=== PATIENT | male | born 1935 | race Caucasian/White ===

== ENCOUNTER 2019-09-08 16:54 | Inpatient (IN) | payer MEDICARE, OTHER ==
[~2019-09-08] VITALS: Ht 175.3 cm; Wt 71.6 kg
[~2019-09-08 16:54] MED LIST: ACET-1770 PO; ASCO-254 PO; ASPI-496 PO; BACI28.42 EXT; CHLO15MO PO; CITA20TA6 PO; CO Q10 PO; CYCL5TAB PO; DOCU50CA3 PO; HYDR-3237 PO; LACT1CAP37 PO; LUTEIN PO; MULT-6 PO; OMEP-110 PO; OXYC-302 PO; TAMS-11 PO; TIZA4CAP PO; TRAZ50TA66 PO; UBID200C7 PO; VITAMIN B12 PO; Will bring list DOS
--- NOTE | 2019-09-08 16:54 | NUR ---
BIBS TRANSFER FROM [facility], [place] C/O DRY COUGH/SOB X2WKS, IMPROVEMENT AFTER DOXYCYLINE USE, SYMPTOMS RETURNED WITH NV X1 THIS AM, +BILAT PNA, COVID PENDING; PT ASSISTED WITH TRANSFER [facility] TO [facility] [place], RESPONDS APPROP TO STAFF WITH NO RESP DISTRESS ON ARRIVAL; COMFORT MEASURES PROVIDED, CALL LIGHT WITHIN REACH.
[2019-09-08] MEDS ORDERED: CITA10TA8 PO (17:12)
[2019-09-08] MEDS ORDERED: FINA5TAB4 PO (17:12)
[2019-09-08] MEDS ORDERED: ASPI-496 PO (17:12)
--- NOTE | 2019-09-08 17:36 | NUR ---
REPORT GIVEN TO YUE. Addendum: 09/08/19 at 1747 by [place] REPORT GIVEN TO
--- NOTE | 2019-09-08 17:40 | NUR ---
PT FAILED ROOM ARE TEST. PT DROPPED TO 88% ON ROOM AIR. PT PLACED BACK ON 2 LITERS VIA NC. PT SAT AT 95%
[2019-09-08 18:15] LABS: BASOPHILS # (AUTO) 0.05 x10^3/uL (0-0.1); BASOPHILS % (AUTO) 0 % (0-1); EOSINOPHILS # (AUTO) 0.09 x10^3/uL (0-0.4); EOSINOPHILS % (AUTO) 1 % (1-7); LYMPHOCYTES # (AUTO) 1.39 x10^3/uL (1-3.4); LYMPHOCYTES % (AUTO) 13 % (22-44); MD NO; MEAN CORPUSCULAR HEMOGLOBIN 31.4 pg (27.5-34.5); MEAN CORPUSCULAR HGB CONC 32.7 g/dL (33.2-36.2); MEAN PLATELET VOLUME 9.3 fL (7.4-10.4); MONOCYTES % (AUTO) 8 % (2-9); NEUTROPHILS # (AUTO) 8.45 x10^3/uL (1.8-6.8); NEUTROPHILS % (AUTO) 78 % (42-75); PLATELET COUNT 151 x10^3/uL (130-400); RED BLOOD COUNT 5.08 x10^6/uL (4.38-5.82)
[2019-09-08 18:24] LABS: ANION GAP 5 mmol/L (5-15); CALCIUM 8.6 mg/dL (8.5-10.1); CHLORIDE 111 mmol/L (98-107); CREATININE 1.27 mg/dL (0.7-1.3)
[2019-09-08] MEDS: SODIUM CHLORIDE 0.9% 1,000 ML IV SCH (18:31)
[2019-09-08] MEDS ORDERED: HEPARIN 25,000 UNITS/250ML PMX 250 ML ONE (18:38)
[2019-09-08] MEDS ORDERED: HEPARIN 5,000 UNITS/ML, 1ML ONE (18:38)
[2019-09-08] MEDS: HEPARIN 25,000 UNITS/250ML PMX 250 ML IV PRN (18:55)
--- NOTE | 2019-09-08 18:58 | NUR ---
HEPARIN INFUSING. ADMITTING MD IS BEDSIDE. PT TO BE ADMITTED. PT EDUCATED ON PLAN OF CARE
[2019-09-08] MEDS ORDERED: ACETAMINOPHEN 325 MG TABLET PO PRN (19:00)
[2019-09-08] MEDS ORDERED: hydrALAzine 20 MG/ML, 1ML IVPush PRN (19:00)
[2019-09-08] MEDS ORDERED: VANCOMYCIN PER PHARMACY MC PRN (19:00)
[2019-09-08] MEDS ORDERED: SODIUM CHLORIDE 0.9%, 500ML IVBOLUS ONE (19:00)
[2019-09-08] MEDS ORDERED: HEPARIN 5,000 UNITS/ML, 1ML IV ONE (19:00)
[2019-09-08] MEDS ORDERED: HEPARIN 5,000 UNITS/ML, 1ML IV PRN (19:00)
[2019-09-08] MEDS ORDERED: ONDANSETRON 2MG/ML, 2ML IVPush PRN (19:00)
[2019-09-08] MEDS ORDERED: ALBUTEROL/IPRATROPIUM 2.5MG/0.5MG, 3 ML NPPB PRN (19:00)
[2019-09-08] MEDS ORDERED: VANCOMYCIN 2,000 MG in SODIUM CHLORIDE 0.9% 500 ML IV ONE (19:30)
[2019-09-08] MEDS ORDERED: ALBUTEROL HFA 90 MCG/SPRAY INH PRN (19:30)
[2019-09-08] MEDS: AZTREONAM 2 GM in DEXTROSE 5% 100 ML IV SCH (19:31)
[2019-09-08] MEDS ORDERED: hydrALAzine 20 MG/ML, 1ML ONE (19:43)
--- NOTE | 2019-09-08 19:50 | NUR ---
PT BP HIGH. MEDICATED PER MAR
[2019-09-08] MEDS ORDERED: TRAZODONE 50MG TABLET ONE (20:14)
--- NOTE | 2019-09-08 20:45 | NUR ---
PT MEDICATED PER AUG. PT PROVIDED SNACKS
[2019-09-08] MEDS: TRAZODONE 50MG TABLET PO SCH (20:46)
[2019-09-08] MEDS: TIZANIDINE 4MG TABLET PO SCH (20:46)
--- NOTE | 2019-09-08 21:05 | NUR ---
ASSUMED CARE OF PT. PT RESTING IN [facility] IN NO ACUTE DISTRESS. FALL PRECAUTIONS IN PLACE, CALL LIGHT PLACED WITHIN REACH.
[2019-09-08] MEDS ORDERED: PHARMACOKINETIC MONITORING MC PRN (22:00)
[2019-09-08] MEDS ORDERED: PHARMACOKINETIC CONSULTATION MC ONE (22:00)
--- NOTE | 2019-09-08 22:10 | NUR ---
Report given to Renae GILL.
[2019-09-08 23:40] VITALS: BP 121/76
[2019-09-09] MEDS: AZTREONAM 2 GM in DEXTROSE 5% 100 ML IV SCH ×3 (03:41→20:41)
[2019-09-09 04:00] VITALS: BP 146/100
[2019-09-09] MEDS ORDERED: PIPERACILLIN/TAZO/PMX 3.375GM 50 ML IV SCH (06:00)
[2019-09-09 07:06] LABS: BASOPHILS # (AUTO) 0.04 x10^3/uL (0-0.1); BASOPHILS % (AUTO) 0 % (0-1); EOSINOPHILS # (AUTO) 0.08 x10^3/uL (0-0.4); EOSINOPHILS % (AUTO) 1 % (1-7); LYMPHOCYTES # (AUTO) 1.19 x10^3/uL (1-3.4); LYMPHOCYTES % (AUTO) 12 % (22-44); MD NO; MEAN CORPUSCULAR HEMOGLOBIN 31.2 pg (27.5-34.5); MEAN CORPUSCULAR HGB CONC 32.1 g/dL (33.2-36.2); MEAN CORPUSCULAR VOLUME 97.3 fL (81-97); MONOCYTES # (AUTO) 0.89 x10^3/uL (0.2-0.8); MONOCYTES % (AUTO) 9 % (2-9); NEUTROPHILS # (AUTO) 7.94 x10^3/uL (1.8-6.8); NEUTROPHILS % (AUTO) 78 % (42-75); PLATELET COUNT 138 x10^3/uL (130-400); RED BLOOD COUNT 4.93 x10^6/uL (4.38-5.82); RED CELL DISTRIBUTION WIDTH 15.1 % (9.4-14.8)
[2019-09-09 07:18] LABS: ANION GAP 7 mmol/L (5-15); CALCIUM 8.3 mg/dL (8.5-10.1); CHLORIDE 112 mmol/L (98-107); CREATININE 1.19 mg/dL (0.7-1.3)
[2019-09-09 07:26] LABS: CHOL/HDL RATIO 2.8; LDL/HDL RATIO 1.6 (0.5-3.0)
[2019-09-09] MEDS: SODIUM CHLORIDE 0.9% 1,000 ML IV SCH (09:00)
[2019-09-09] MEDS: ASPIRIN 81 MG TABLET EC PO SCH (09:12)
[2019-09-09] MEDS: CITALOPRAM 10 MG TABLET PO SCH (09:12)
[2019-09-09] MEDS: FINASTERIDE 5 MG TABLET PO SCH (09:12)
[2019-09-09] MEDS: TAMSULOSIN 0.4 MG CAP.ER.24H PO SCH (09:13)
[2019-09-09] MEDS: METOPROLOL TARTRATE 25 MG TAB PO SCH ×2 (09:48→18:28)
[2019-09-09] MEDS: AZITHROMYCIN 500 MG TABLET PO SCH (11:30)
[2019-09-09] MEDS: HEPARIN 25,000 UNITS/250ML PMX 250 ML IV PRN (13:56)
[2019-09-09] MEDS ORDERED: VANCOMYCIN 1,500 MG in SODIUM CHLORIDE 0.9% 250 ML IV SCH (20:00)
[2019-09-09] MEDS: TRAZODONE 50MG TABLET PO SCH (20:45)
[2019-09-09] MEDS: TIZANIDINE 4MG TABLET PO SCH (20:45)
[2019-09-09] MEDS: ATORVASTATIN 40 MG TABLET PO SCH (20:45)
[2019-09-10] VITALS (7 sets, daily range): BP systolic 104–126; BP diastolic 69–80
[2019-09-10] MEDS: AZTREONAM 2 GM in DEXTROSE 5% 100 ML IV SCH ×3 (03:18→22:22)
[2019-09-10] MEDS: METOPROLOL TARTRATE 25 MG TAB PO SCH ×2 (06:29→18:00)
[2019-09-10] MEDS: FINASTERIDE 5 MG TABLET PO SCH (09:21)
[2019-09-10] MEDS: ASPIRIN 81 MG TABLET EC PO SCH (09:21)
[2019-09-10] MEDS: TAMSULOSIN 0.4 MG CAP.ER.24H PO SCH (09:21)
[2019-09-10] MEDS: CITALOPRAM 10 MG TABLET PO SCH (09:21)
[2019-09-10] MEDS: AZITHROMYCIN 500 MG TABLET PO SCH (09:22)
[2019-09-10] MEDS: HEPARIN 25,000 UNITS/250ML PMX 250 ML IV PRN (09:39)
[2019-09-10] MEDS: TRAZODONE 50MG TABLET PO SCH (21:53)
[2019-09-10] MEDS: TIZANIDINE 4MG TABLET PO SCH (21:54)
[2019-09-10] MEDS: ATORVASTATIN 40 MG TABLET PO SCH (21:54)
[2019-09-11 03:01] VITALS: BP 109/70
[2019-09-11] MEDS: AZTREONAM 2 GM in DEXTROSE 5% 100 ML IV SCH ×3 (03:04→20:11)
[2019-09-11 04:52] LABS: BASOPHILS # (AUTO) 0.04 x10^3/uL (0-0.1); BASOPHILS % (AUTO) 1 % (0-1); EOSINOPHILS # (AUTO) 0.32 x10^3/uL (0-0.4); EOSINOPHILS % (AUTO) 5 % (1-7); LYMPHOCYTES # (AUTO) 1.34 x10^3/uL (1-3.4); LYMPHOCYTES % (AUTO) 20 % (22-44); MD NO; MEAN CORPUSCULAR HEMOGLOBIN 31.8 pg (27.5-34.5); MEAN CORPUSCULAR HGB CONC 32.9 g/dL (33.2-36.2); MEAN CORPUSCULAR VOLUME 96.7 fL (81-97); MEAN PLATELET VOLUME 9.5 fL (7.4-10.4); MONOCYTES # (AUTO) 0.62 x10^3/uL (0.2-0.8); MONOCYTES % (AUTO) 9 % (2-9); NEUTROPHILS # (AUTO) 4.25 x10^3/uL (1.8-6.8); NEUTROPHILS % (AUTO) 65 % (42-75); PLATELET COUNT 121 x10^3/uL (130-400); RED BLOOD COUNT 4.52 x10^6/uL (4.38-5.82); RED CELL DISTRIBUTION WIDTH 14.9 % (9.4-14.8)
[2019-09-11 04:55] LABS: ANION GAP 5 mmol/L (5-15); CALCIUM 8.2 mg/dL (8.5-10.1); CHLORIDE 109 mmol/L (98-107)
[2019-09-11 04:57] LABS: CREATININE 1.22 mg/dL (0.7-1.3)
[2019-09-11 05:23] VITALS: BP 106/70
[2019-09-11] MEDS: METOPROLOL TARTRATE 25 MG TAB PO SCH (05:24)
[2019-09-11 06:48] VITALS: BP 108/72
[2019-09-11] MEDS: FINASTERIDE 5 MG TABLET PO SCH (08:03)
[2019-09-11] MEDS: TAMSULOSIN 0.4 MG CAP.ER.24H PO SCH (08:03)
[2019-09-11] MEDS: ASPIRIN 81 MG TABLET EC PO SCH (08:03)
[2019-09-11] MEDS: AZITHROMYCIN 500 MG TABLET PO SCH (08:03)
[2019-09-11] MEDS: CITALOPRAM 10 MG TABLET PO SCH (08:04)
[2019-09-11] MEDS ORDERED: SODIUM CHLORIDE 0.9% 1,000 ML IV SCH (11:00)
[2019-09-11] MEDS ORDERED: FENTANYL PF 100 MCG/2ML ONE (11:53)
[2019-09-11] MEDS ORDERED: MIDAZOLAM 1 MG/ML, 5ML ONE (11:53)
[2019-09-11] MEDS ORDERED: LIDOCAINE-MPF 1%, 5ML ONE (11:54)
[2019-09-11] MEDS ORDERED: BIVALIRUDIN 250 MG ONE (11:54)
[2019-09-11] MEDS ORDERED: VERAPAMIL 2.5 MG/ML, 2ML ONE (11:54)
[2019-09-11] MEDS ORDERED: HEPARIN 1,000 UNITS/ML, 10ML ONE (11:54)
[2019-09-11] MEDS ORDERED: CLOPIDOGREL 300 MG TABLET ONE (13:19)
[2019-09-11] MEDS ORDERED: BIVALIRUDIN 250 MG in SODIUM CHLORIDE 0.9% 50 ML IV SCH (13:30)
[2019-09-11] MEDS ORDERED: FUROSEMIDE 40 MG/4 ML ONE (14:20)
[2019-09-11] MEDS ORDERED: CARVEDILOL 3.125 MG TABLET ONE (14:21)
[2019-09-11] MEDS ORDERED: CARVEDILOL 3.125 MG TABLET PO SCH (14:30)
[2019-09-11] MEDS ORDERED: FUROSEMIDE 40 MG/4 ML IV ONE ×2 (14:30→21:00)
[2019-09-11 15:53] VITALS: BP 115/72
[2019-09-11] MEDS: CARVEDILOL 3.125 MG TABLET PO SCH (18:12)
[2019-09-11] MEDS: TRAZODONE 50MG TABLET PO SCH (20:11)
[2019-09-11] MEDS: ATORVASTATIN 40 MG TABLET PO SCH (20:12)
[2019-09-11] MEDS: TIZANIDINE 4MG TABLET PO SCH (20:12)
[2019-09-11 20:24] VITALS: BP 136/85
[2019-09-12 02:17] VITALS: BP 126/92
[2019-09-12] MEDS: AZTREONAM 2 GM in DEXTROSE 5% 100 ML IV SCH ×3 (03:11→21:14)
[2019-09-12 05:31] VITALS: BP 147/82
[2019-09-12] MEDS: OMEPRAZOLE 20 MG CAPSULE.DR PO SCH (05:32)
[2019-09-12] MEDS: CARVEDILOL 3.125 MG TABLET PO SCH ×2 (05:33→17:55)
[2019-09-12 05:54] LABS: BASOPHILS # (AUTO) 0.02 x10^3/uL (0-0.1); BASOPHILS % (AUTO) 0 % (0-1); EOSINOPHILS # (AUTO) 0.44 x10^3/uL (0-0.4); EOSINOPHILS % (AUTO) 6 % (1-7); LYMPHOCYTES % (AUTO) 13 % (22-44); MD NO; MEAN CORPUSCULAR HEMOGLOBIN 31.5 pg (27.5-34.5); MEAN CORPUSCULAR HGB CONC 32.8 g/dL (33.2-36.2); MEAN CORPUSCULAR VOLUME 96.2 fL (81-97); MEAN PLATELET VOLUME 9.3 fL (7.4-10.4); MONOCYTES % (AUTO) 8 % (2-9); NEUTROPHILS # (AUTO) 5.52 x10^3/uL (1.8-6.8); NEUTROPHILS % (AUTO) 73 % (42-75); PLATELET COUNT 129 x10^3/uL (130-400); RED BLOOD COUNT 5.08 x10^6/uL (4.38-5.82); RED CELL DISTRIBUTION WIDTH 14.9 % (9.4-14.8)
[2019-09-12 06:10] LABS: ANION GAP 6 mmol/L (5-15); CALCIUM 9.3 mg/dL (8.5-10.1); CHLORIDE 105 mmol/L (98-107)
[2019-09-12 06:11] LABS: CREATININE 1.37 mg/dL (0.7-1.3)
[2019-09-12] MEDS ORDERED: LOSARTAN 50MG TABLET ONE (08:28)
[2019-09-12] MEDS: AZITHROMYCIN 500 MG TABLET PO SCH (08:30)
[2019-09-12] MEDS: TAMSULOSIN 0.4 MG CAP.ER.24H PO SCH (08:30)
[2019-09-12] MEDS: CLOPIDOGREL 75 MG TABLET PO SCH (08:30)
[2019-09-12] MEDS: LOSARTAN 25MG TABLET PO SCH (08:30)
[2019-09-12] MEDS: CITALOPRAM 10 MG TABLET PO SCH (08:30)
[2019-09-12] MEDS: FINASTERIDE 5 MG TABLET PO SCH (08:30)
[2019-09-12] MEDS: ASPIRIN 81 MG TABLET EC PO SCH (08:30)
[2019-09-12 08:38] VITALS: BP 124/70
[2019-09-12 13:29] VITALS: BP 111/55
[2019-09-12 17:54] VITALS: BP 137/71
[2019-09-12 18:37] VITALS: BP 135/80
[2019-09-12] MEDS: TRAZODONE 50MG TABLET PO SCH (21:18)
[2019-09-12] MEDS: ATORVASTATIN 40 MG TABLET PO SCH (21:18)
[2019-09-12] MEDS: TIZANIDINE 4MG TABLET PO SCH (21:18)
[2019-09-13 01:35] VITALS: BP 132/70
[2019-09-13] MEDS: AZTREONAM 2 GM in DEXTROSE 5% 100 ML IV SCH (05:29)
[2019-09-13] MEDS: OMEPRAZOLE 20 MG CAPSULE.DR PO SCH (05:29)
[2019-09-13] MEDS: CARVEDILOL 3.125 MG TABLET PO SCH (05:30)
[2019-09-13 05:37] LABS: BASOPHILS # (AUTO) 0.02 x10^3/uL (0-0.1); BASOPHILS % (AUTO) 0 % (0-1); EOSINOPHILS # (AUTO) 0.49 x10^3/uL (0-0.4); EOSINOPHILS % (AUTO) 7 % (1-7); LYMPHOCYTES # (AUTO) 0.96 x10^3/uL (1-3.4); LYMPHOCYTES % (AUTO) 13 % (22-44); MD NO; MEAN CORPUSCULAR HEMOGLOBIN 31.2 pg (27.5-34.5); MEAN CORPUSCULAR HGB CONC 32.5 g/dL (33.2-36.2); MEAN CORPUSCULAR VOLUME 95.9 fL (81-97); MEAN PLATELET VOLUME 9.8 fL (7.4-10.4); MONOCYTES % (AUTO) 8 % (2-9); NEUTROPHILS # (AUTO) 5.21 x10^3/uL (1.8-6.8); NEUTROPHILS % (AUTO) 72 % (42-75); PLATELET COUNT 136 x10^3/uL (130-400); RED BLOOD COUNT 4.71 x10^6/uL (4.38-5.82); RED CELL DISTRIBUTION WIDTH 14.9 % (9.4-14.8)
[2019-09-13 05:50] LABS: ANION GAP 4 mmol/L (5-15); CALCIUM 8.6 mg/dL (8.5-10.1); CHLORIDE 108 mmol/L (98-107); CREATININE 1.38 mg/dL (0.7-1.3)
[2019-09-13 07:05] VITALS: BP 145/85
[2019-09-13] MEDS: LOSARTAN 25MG TABLET PO SCH (08:47)
[2019-09-13] MEDS: AZITHROMYCIN 500 MG TABLET PO SCH (08:47)
[2019-09-13] MEDS: CITALOPRAM 10 MG TABLET PO SCH (08:47)
[2019-09-13] MEDS: TAMSULOSIN 0.4 MG CAP.ER.24H PO SCH (08:47)
[2019-09-13] MEDS: ASPIRIN 81 MG TABLET EC PO SCH (08:47)
[2019-09-13] MEDS: CLOPIDOGREL 75 MG TABLET PO SCH (08:47)
[2019-09-13] MEDS ORDERED: LEVOFLOXACIN 500 MG TABLET PO SCH (09:30)
[2019-09-13] MEDS: FINASTERIDE 5 MG TABLET PO SCH (09:38)
[2019-09-13 15:00] VITALS: BP 138/78
[2019-09-13] MEDS: CARVEDILOL 6.25 MG TABLET PO SCH (17:15)
[2019-09-13 18:35] VITALS: BP 129/71
[2019-09-13] MEDS: TIZANIDINE 4MG TABLET PO SCH (21:07)
[2019-09-13] MEDS: ATORVASTATIN 40 MG TABLET PO SCH (21:07)
[2019-09-13] MEDS: TRAZODONE 50MG TABLET PO SCH (21:08)
[2019-09-14 01:49] VITALS: BP 133/77
[2019-09-14 05:17] LABS: ALBUMIN 2.2 g/dL (3.4-5.0); ANION GAP 6 mmol/L (5-15); CALCIUM 8.7 mg/dL (8.5-10.1); CHLORIDE 109 mmol/L (98-107)
[2019-09-14 05:21] LABS: ALANINE AMINOTRANSFERASE 33 U/L (12-78); ALKALINE PHOSPHATASE 67 U/L (45-117); BILIRUBIN,TOTAL 0.6 mg/dL (0.2-1.0); CREATININE 1.24 mg/dL (0.7-1.3); TOTAL PROTEIN 5.9 g/dL (6.4-8.2)
[2019-09-14] MEDS: OMEPRAZOLE 20 MG CAPSULE.DR PO SCH (06:13)
[2019-09-14] MEDS: CARVEDILOL 6.25 MG TABLET PO SCH (06:13)
[2019-09-14 07:04] VITALS: BP 149/84
[2019-09-14] MEDS: TAMSULOSIN 0.4 MG CAP.ER.24H PO SCH (08:17)
[2019-09-14] MEDS: FINASTERIDE 5 MG TABLET PO SCH (08:18)
[2019-09-14] MEDS: ASPIRIN 81 MG TABLET EC PO SCH (08:18)
[2019-09-14] MEDS: CITALOPRAM 10 MG TABLET PO SCH (08:18)
[2019-09-14] MEDS: LOSARTAN 25MG TABLET PO SCH (08:18)
[2019-09-14] MEDS: CLOPIDOGREL 75 MG TABLET PO SCH (08:18)
[2019-09-14] MEDS ORDERED: FUROSEMIDE 20 MG TABLET PO SCH (09:00)
[2019-09-14] MEDS ORDERED: FURO20TA3 PO (10:25)
[2019-09-14] MEDS ORDERED: CARV6.2512 PO (10:25)
[2019-09-14] MEDS ORDERED: LOSA25TA25 PO (10:25)
[2019-09-14] MEDS ORDERED: ATOR40TA78 PO (10:25)
[2019-09-14] MEDS ORDERED: CLOP75TA PO (10:25)
[2019-09-14] MEDS ORDERED: OMEP-110 PO (10:25)
[2019-09-14] MEDS ORDERED: LEVO500T47 PO (10:25)
[2019-09-14 13:30] VITALS: BP 102/63
[2019-09-15] MEDS ORDERED: LEVOFLOXACIN 500 MG TABLET PO SCH (09:00)
== END 2019-09-14 14:26 | DRG 246 ==
LOC: ED 17:23 → EDIP 18:20 → ICU 22:29 → 5SO 09-10 15:26 → ICU 09-10 15:55 → 5SO 09-10 17:11
PROVIDERS: ADMIT Internal Medicine; ATTEND Internal Medicine
PROC: 027135Z Dilation of Coronary Artery, Two Arteries with Two Drug-eluting Intraluminal Devices, Percutaneous Approach (ICD-10-PCS; principal; 2019-09-11)
PROC: 4A023N7 Measurement of Cardiac Sampling and Pressure, Left Heart, Percutaneous Approach (ICD-10-PCS; 2019-09-11)
PROC: B211YZZ Fluoroscopy of Multiple Coronary Arteries using Other Contrast (ICD-10-PCS; 2019-09-11)
PROC: B215YZZ Fluoroscopy of Left Heart using Other Contrast (ICD-10-PCS; 2019-09-11)
DX: I21.4 Non-ST elevation (NSTEMI) myocardial infarction (principal); J18.9 Pneumonia, unspecified organism; J96.01 Acute respiratory failure with hypoxia; I50.40 Unspecified combined systolic (congestive) and diastolic (congestive) heart failure; I42.9 Cardiomyopathy, unspecified; F41.9 Anxiety disorder, unspecified; F32.9 Major depressive disorder, single episode, unspecified; I25.10 Atherosclerotic heart disease of native coronary artery without angina pectoris; I27.21 Secondary pulmonary arterial hypertension; K21.9 Gastro-esophageal reflux disease without esophagitis; M24.542 Contracture, left hand; N40.0 Benign prostatic hyperplasia without lower urinary tract symptoms; N18.3 Chronic kidney disease, stage 3 (moderate); Y95 Nosocomial condition; Z79.82 Long term (current) use of aspirin; Z79.899 Other long term (current) drug therapy; Z85.810 Personal history of malignant neoplasm of tongue; Z86.73 Personal history of transient ischemic attack (TIA), and cerebral infarction without residual deficits; Z87.891 Personal history of nicotine dependence; Z88.0 Allergy status to penicillin; Z88.5 Allergy status to narcotic agent; Z20.828 Contact with and (suspected) exposure to other viral communicable diseases
CPT/HCPCS: 36415; 71045; 80048; 80053; 80061; 83605; 84145; 84484; 85025; 85520; 87040; 87081; 93005; 93458; 96361; 96374; 96375; 99156; 99157; 99291; C1769; C1894; C8929; C9600; G0378; J0583; J1644; J1940; J2250; J3010; J3370; Q9957; C1725; C1874; C1887; J0360; J7030; J7040; Q9967

== ENCOUNTER → 2020-12-22 | Outpatient (CLI) | payer MEDICARE, OTHER ==
[~2020-12-22] MED LIST changes: -ASCO-254 PO; +ASCO500T93 PO; +ATOR40TA78 PO; +CARV6.2512 PO; +CITA10TA8 PO; +CLOP75TA PO; +FINA5TAB4 PO; +FURO20TA3 PO; -LACT1CAP37 PO; +LACT1CAP47 PO; +LEVO500T47 PO; +LOSA25TA25 PO; -OXYC-302 PO; +OXYC1TAB14 PO
== END | disposition home or self-care (01) ==
LOC: CVU 10:36
PROVIDERS: ATTEND Internal Medicine Cardiovascular Disease
DX: I35.1 Nonrheumatic aortic (valve) insufficiency (principal); I42.9 Cardiomyopathy, unspecified; I11.9 Hypertensive heart disease without heart failure; E78.5 Hyperlipidemia, unspecified; I25.2 Old myocardial infarction
CPT/HCPCS: 93306